=== PATIENT | female | born 1955 | race Two or more races ===

== ENCOUNTER 2023-05-16 08:29 | Emergency (ER) | payer OTHER, MEDICAID ==
[~2023-05-16] VITALS: Ht 157.5 cm; Wt 90.4 kg
[2023-05-16 09:32] VITALS: BP 137/77; PULSE 69; RESP 20; TEMP 98.2; O2SAT 97
[2023-05-16 09:40] LABS: Urine Bacteria FEW /hpf (None Seen); Urine Blood 2+ /uL (Negative); Urine Clarity Clear (Clear); Urine Color Yellow (Yellow); Urine Hyaline Cast FEW /lpf (0 - 2); Urine Mucus FEW (None Seen); Urine Protein, UAD Negative (Negative); Urine Specific Gravity 1.018 (1.001-1.035); Urine Urobilinogen Normal (Negative); Urine WBC 1 /hpf (0 - 5); Urine pH 6.5 (5.0-8.0)
[2023-05-16 09:54] LABS: Basophils # (auto) 0.1 10 ^3/uL (0-0.2); Basophils % (auto) 1.1 % (0.0-2.0); Eosinophils # (auto) 0.3 10 ^3/uL (0-0.8); Eosinophils % (auto) 3.4 % (0.0-7.0); Hematocrit 41.4 % (36.0-46.0); Hemoglobin 13.5 g/dL (12.2-16.2); Lymphocytes # (auto) 2.3 10 ^3/uL (0.4-5.4); Lymphocytes % (auto) 30.2 % (10.0-50.0); Mean Corpuscular Hgb Conc. 32.7 g/dL (32.0-36.0); Mean Corpuscular Volume 91.6 fL (80.0-100.0); Monocytes # (auto) 0.4 10 ^3/uL (0-1.3); Monocytes % (auto) 5.3 % (0.0-12.0); Neutrophils # (auto) 4.6 10 ^3/uL (1.6-8.6); Red Blood Cells 4.51 10^6/uL (4.0-5.20); Red Cell Distribution Width 14.3 % (11.8-14.3); White Blood Cell 7.6 10^3/uL (4.4-10.8)
[2023-05-16 10:05] LABS: Chloride 110 mmol/L (98-107); Potassium 3.9 mmol/L (3.5-5.1); Sodium 140 mmol/L (136-145)
[2023-05-16 10:06] LABS: Anion Gap 8 (5-15); Carbon Dioxide 22 mmol/L (20-30)
[2023-05-16 10:07] LABS: Calcium 9.4 mg/dL (8.5-10.1)
[2023-05-16 10:11] LABS: BUN/Creatinine Ratio 10.7 (10.0-20.0); Blood Urea Nitrogen 8 mg/dL (9-23); Glucose 113 mg/dL (74-106)
[2023-05-16] MEDS ORDERED: PROM1SOL4 PO (11:18)
[2023-05-16] MEDS ORDERED: AZIT500T66 PO (11:18)
[2023-05-16] MEDS ORDERED: IBUP-1456 PO (11:18)
== END 2023-05-16 11:24 | disposition home or self-care (01) ==
LOC: ER 08:29
DX: N93.9 Abnormal uterine and vaginal bleeding, unspecified (principal); M79.671 Pain in right foot; J20.9 Acute bronchitis, unspecified; Z90.710 Acquired absence of both cervix and uterus
CPT/HCPCS: 36415; 71045; 73630; 76856; 80048; 81001; 85025

== ENCOUNTER 2023-10-07 17:57 | Emergency (ER) | payer OTHER, MEDICAID ==
[~2023-10-07] VITALS: Ht 157.5 cm; Wt 94.0 kg
[~2023-10-07 17:57] MED LIST: AZIT500T66 PO; IBUP-1456 PO; PROM1SOL4 PO
[2023-10-07 18:39] VITALS: BP 107/67; PULSE 83; RESP 16; O2SAT 96
[2023-10-07] MEDS ORDERED: ACETAMINOPHEN 325 MG TAB PO ONE (19:30)
== END 2023-10-07 21:10 | disposition left against medical advice (07) ==
LOC: ER 17:57
DX: Z48.00 Encounter for change or removal of nonsurgical wound dressing (principal); Z53.21 Procedure and treatment not carried out due to patient leaving prior to being seen by health care provider

== ENCOUNTER 2023-12-21 05:49 | Inpatient (IN) | payer OTHER, MEDICAID ==
[~2023-12-21] VITALS: Ht 157.5 cm; Wt 95.0 kg
[2023-12-21] MEDS: HYDROcodone-ACET 10/325MG TAB PO ONE (07:33)
[2023-12-21 08:20] LABS: Basophils # (auto) 0.1 10 ^3/uL (0-0.2); Basophils % (auto) 0.6 % (0.0-2.0); Eosinophils # (auto) 0.2 10 ^3/uL (0-0.8); Eosinophils % (auto) 1.8 % (0.0-7.0); Hematocrit 41.7 % (36.0-46.0); Mean Corpuscular Hemoglobin 30.7 pg (28.0-32.0); Mean Corpuscular Hgb Conc. 33.6 g/dL (32.0-36.0); Mean Corpuscular Volume 91.4 fL (80.0-100.0); Monocytes # (auto) 0.4 10 ^3/uL (0-1.3); Monocytes % (auto) 3.2 % (0.0-12.0); Neutrophils # (auto) 8.6 10 ^3/uL (1.6-8.6); Neutrophils % (auto) 76.4 % (37.0-80.0); Red Blood Cells 4.56 10^6/uL (4.0-5.20); Red Cell Distribution Width 14.4 % (11.8-14.3); White Blood Cell 11.2 10^3/uL (4.4-10.8)
[2023-12-21 08:41] LABS: Chloride 109 mmol/L (98-107); Potassium 4.4 mmol/L (3.5-5.1); Sodium 138 mmol/L (136-145)
[2023-12-21 08:42] LABS: Anion Gap 8 (5-15); Calcium 9.5 mg/dL (8.7-10.4); Carbon Dioxide 21 mmol/L (20-30)
[2023-12-21 08:47] LABS: BUN/Creatinine Ratio 13.5 (10.0-20.0); Blood Urea Nitrogen 12 mg/dL (9-23); Glucose 142 mg/dL (74-106)
[2023-12-21 09:30] VITALS: PULSE 74; RESP 12; O2SAT 97
[2023-12-21 10:57] VITALS: RESP 12; O2SAT 94
[2023-12-21] MEDS ORDERED: HYDROcodone-ACET 5/325MG TAB PO PRN (12:45)
[2023-12-21] MEDS ORDERED: ACETAMINOPHEN 325 MG TAB PO PRN (12:45)
[2023-12-21] MEDS: SODIUM CHLORIDE 0.9% 1,000 ML IV SCH (13:14)
[2023-12-21] MEDS: KETOROLAC TROMETH 30 MG/ML 1ML VIAL IV ONE (13:15)
[2023-12-21] MEDS: IBUPROFEN 800 MG TAB PO SCH (13:16)
[2023-12-21 13:19] LABS: LDL Cholesterol 155 mg/dL (< 100); Triglycerides 84 mg/dL (< 150)
[2023-12-21 13:21] LABS: Cholesterol 210 mg/dL (< 200); HDL Cholesterol 46 mg/dL (40-59)
[2023-12-21 13:38] LABS: Erythrocyte Sedimentation Rate 34 mm/hr (0-20)
[2023-12-21] MEDS ORDERED: ATOR40TA52 PO (18:21)
[2023-12-21] MEDS ORDERED: TRAM50TA2 PO (18:21)
[2023-12-21] MEDS ORDERED: CYCL-837 PO (18:23)
[2023-12-21] MEDS ORDERED: METH-1182 PO (18:23)
[2023-12-21 19:30] VITALS: PULSE 82; RESP 17; O2SAT 97
[2023-12-21] MEDS: MORPHINE SULFATE INJ 2 MG/ml SYRG IV PRN (20:47)
[2023-12-21 21:00] VITALS: BP 122/52; PULSE 68; RESP 17; TEMP 98; O2SAT 93
[2023-12-22] VITALS (7 sets, daily range): BP systolic 127–146; BP diastolic 52–78; PULSE 62–87; RESP 14–19; TEMP 97.5–98.5; O2SAT 94–97
[2023-12-22 05:33] LABS: Basophils # (auto) 0.1 10 ^3/uL (0-0.2); Basophils % (auto) 0.7 % (0.0-2.0); Eosinophils # (auto) 0.5 10 ^3/uL (0-0.8); Eosinophils % (auto) 6.5 % (0.0-7.0); Hematocrit 38.7 % (36.0-46.0); Hemoglobin 13.4 g/dL (12.2-16.2); Lymphocytes # (auto) 3.5 10 ^3/uL (0.4-5.4); Lymphocytes % (auto) 41.4 % (10.0-50.0); Mean Corpuscular Hemoglobin 31.5 pg (28.0-32.0); Mean Corpuscular Hgb Conc. 34.6 g/dL (32.0-36.0); Mean Corpuscular Volume 91.2 fL (80.0-100.0); Monocytes # (auto) 0.6 10 ^3/uL (0-1.3); Neutrophils # (auto) 3.7 10 ^3/uL (1.6-8.6); Neutrophils % (auto) 44.4 % (37.0-80.0); Red Blood Cells 4.24 10^6/uL (4.0-5.20); Red Cell Distribution Width 14.2 % (11.8-14.3); White Blood Cell 8.4 10^3/uL (4.4-10.8)
[2023-12-22 05:52] LABS: Alanine Aminotransferase 15 U/L (7-40); Albumin 3.7 g/dL (3.2-4.8); Alkaline Phosphatase 85 U/L (46-116); Anion Gap 7 (5-15); Aspartate Aminotransferase 12 U/L (13-40); Blood Urea Nitrogen 16 mg/dL (9-23); Calcium 8.9 mg/dL (8.7-10.4); Carbon Dioxide 22 mmol/L (20-30); Chloride 112 mmol/L (98-107); Glucose 116 mg/dL (74-106); Potassium 4.1 mmol/L (3.5-5.1); Sodium 141 mmol/L (136-145)
[2023-12-22 05:53] LABS: Bilirubin, Total 0.3 mg/dL (0.2-1.0); Total Protein 6.3 g/dL (5.7-8.2)
[2023-12-22] MEDS: ENOXAPARIN SOD 40 MG/0.4 ML SYRINGE SC SCH (09:59)
[2023-12-22] MEDS: DOCUSATE SOD 100 MG CAP PO PRN (15:01)
[2023-12-23 01:24] VITALS: BP 119/61; PULSE 68; RESP 17; TEMP 98; O2SAT 94
[2023-12-23 05:00] VITALS: BP 128/65; PULSE 66; RESP 17; TEMP 97.6; O2SAT 92
[2023-12-23 09:00] VITALS: BP 120/91; PULSE 66; RESP 20; TEMP 97.8; O2SAT 96
[2023-12-23 13:00] VITALS: BP 155/78; PULSE 67; RESP 20; TEMP 98; O2SAT 97
[2023-12-23] MEDS ORDERED: HYDR-4069 PO (14:55)
== END 2023-12-23 16:15 | disposition home or self-care (01) | DRG 558 ==
LOC: ER 05:49 → OVERFLOW 12:36 → WEST WING 15:50
PROVIDERS: ADMIT Nurse Practitioner Family; ATTEND Family Medicine
DX: M75.111 Incomplete rotator cuff tear or rupture of right shoulder, not specified as traumatic (principal); E66.01 Morbid (severe) obesity due to excess calories; E78.00 Pure hypercholesterolemia, unspecified; M75.51 Bursitis of right shoulder; G89.29 Other chronic pain; Z82.49 Family history of ischemic heart disease and other diseases of the circulatory system; Z83.3 Family history of diabetes mellitus; Z82.3 Family history of stroke; Z90.710 Acquired absence of both cervix and uterus; Z68.38 Body mass index [BMI] 38.0-38.9, adult
CPT/HCPCS: 36415; 73030; 73221; 80048; 80053; 80061; 84443; 85025; 85652; 86141; 96374; G0378; J1885

== ENCOUNTER 2025-01-29 12:53 | Emergency (ER) | payer OTHER, MEDICAID ==
[~2025-01-29] VITALS: Ht 157.5 cm; Wt 92.2 kg
[~2025-01-29 12:53] MED LIST changes: +ATOR40TA52 PO; -AZIT500T66 PO; +CYCL-837 PO; +HYDR-4069 PO; -IBUP-1456 PO; +METH-1182 PO; -PROM1SOL4 PO; +TRAM50TA2 PO
--- NOTE | 2025-01-29 13:47 | ED.PDOC ---
History of Present Illness HPI Comments A 69-YEAR-OLD FEMALE, WITH A PMHX OF SCIATICA AND CHRONIC LOW BACK PAIN, PRESENTS TO THE ED VIA WHEELCHAIR WITH A CHIEF COMPLAINT OF RIGHT SHOULDER PAIN WITH ASSOCIATED LEFT LOWER BACK PAIN. PATIENT STATES SHE HAS HAD RIGHT SHOULDER PAIN FOR 9 DAYS, WITH BACK PAIN OF YESTERDAY. PATIENT REPORTS TAKING TRA MADOL AT HOME FOR SCIATICA, BUT REPORTS NO RELIEF. PATIENT CAME TO THE ED TODAY FOR FURTHER EVALUATION AND STRONGER MEDICATIONS. PATIENT HAS NO FURTHER COMPLAINTS AT THIS TIME FURTHER ASSOCIATED SYMPTOMS OF FEVER, CHILLS, NAUSEA, VOMITING, GENERAL WEAKNESS, OR DIZZINESS. PATIENT IS ALERT, ORIENTED X 4, AND HAS STEADY GAIT. Chief Complaint: Back Pain Time Seen by MD: 13:35 Primary Care Provider: DEVIN Reviewed Notes: Nurses Notes, Medications, Allergies Allergies: Coded Allergies: Codeine (Verified Allergy, Severe, 10/07/23) Penicillins (Verified Allergy, Mild, SNEEZING, MIGRAINES, 12/21/23) Home Meds Active Scripts Prednisone (Prednisone) 20 Mg Tab, 40 MG PO DAILY, #20 TAB Prov:LUIS SMITH 01/29/25 Methocarbamol (Methocarbamol) 750 Mg Tab, 750 MG PO BID, #20 TAB Prov:LUIS SMITH 01/29/25 Hydrocodone-Acetaminophen (Hydrocodone/Acetaminophen 7.5-325 mg) 1 Tab Tab, 1 TAB PO QID PRN, #30 TAB Prov:EL PHILLIPS MD 12/23/23 Reported Medications Methocarbamol (Methocarbamol) 750 Mg Tab, 750 MG PO, TAB 12/21/23 Cyclobenzaprine Hcl (Cyclobenzaprine Hcl) 5 Mg Tab, 1 TAB PO TID, #30 TAB 12/21/23 Tramadol Hcl (Tramadol Hcl) 50 Mg Tab, 50 MG PO PRN, TAB 12/21/23 Atorvastatin Calcium (ATORVASTATIN CALCIUM) 40 Mg Tab, 1 TAB PO QPM, #90 TAB 3 Refills 12/21/23 Information Source: Patient Mode of Arrival: Ambulatory Severity: Moderate Timing: Days Duration: Since onset, Days Prehospital treatment: None Medication Refill: For: Pain (CHRONIC LOW BACK PAIN ) Location: R SHOULDER AND LEFT LOWER BACK Associated signs and symptoms LEFT LOWER BACK PAIN, RIGHT SHOULDER PAIN Past Medical History PAST MEDICAL HISTORY: Arthritis, High Lipids Past Medical History (Other): CHRONIC LOW BACK PAIN Surgical History: Hysterectomy POT OPERATOR History: No Pertinent POT OPERATOR History Family History Family History: Reviewed,noncontributory to illness Social History Smoker: Non-Smoker Alcohol: Denies ETOH Use Drugs: Denies Drug Use Lives In: Home Constitutional: reports: others (ANXIOUS ); denies: chills, diaphoresis, fatigue, fever, malaise, sweats, weakness EENTM: denies: blurred vision, double vision, ear bleeding, ear discharge, ear drainage, ear pain, ear ringing, eye pain, eye redness, hearing loss, mouth pain, mouth swelling, nasal discharge, nose bleeding, nose congestion, nose pain, photophobia, tearing, throat pain, throat swelling, voice changes, others Respiratory: denies: cough, hemoptysis, orthopnea, SOB at rest, shortness of breath, SOB with excertion, stridor, wheezing, others Cardiovascular: denies: chest pain, dizzy spells, diaphoresis, Dyspnea on exertion, edema, irregular heart beat, left arm pain, lightheadedness, p alpitations, PND, syncope, others Gastrointestinal: denies: abdomen distended, abdominal pain, blood streaked bowels, constipated, diarrhea, dysphagia, difficulty swallowing, hematemesis, melena, nausea, poor appetite, poor fluid intake, rectal bleeding, rectal pain, vomiting, others Genitourinary: denies: abnormal vagina bleeding, burning, dyspareunia, dysuria, flank pain, frequency, hematuria, incontinence, pain, , vagina discharge, urgency, others Neurological: denies: dizziness, fainting, headache, left sided numbness, left sided weakness, numbness, paresthesia, pre-existing deficit, right sided numbness, right sided weakness, seizure, speech problems, tingling, tremors, weakness, others Musculoskeletal: reports: back pain, joint pain, muscle pain, others (R SHOULDER PAIN ); denies: gout, joint swelling, muscle stiffness, neck pain Integumetry: denies: bruises, change in color, change in hair/nails, dryness, laceration, lesions, lumps, rash, wounds, others Allergic/Immunocompromised: denies: Difficulty Healing, Frequent Infections, Hives, Itching, others Hematologic/Lymphatic: denies: anemia, blood clots, easy bleeding, easy bruising, swollen glands, others Endocrine: denies: excessive hunger, excessive sweating, excessive thirst, excessive urination, flushing, intolerance to cold, intolerance to heat, unexplained weight gain, unexplained weight loss, others Psychiatric: denies: anxiety, bipolar disorder, depression, hopeless, panic disorder, schizophrenia, sleepless, suicidal, others All Other Systems: Reviewed and Negative Physical Exam General Appearance: No Apparent Distress, Obese HEENT: Normal ENT Inspection, PERRL/EOMI, Pharynx Normal, TMs Normal Neck: Full Range of Motion, Non-Tender, Normal, Normal Inspection Respiratory: Chest Non-Tender, Lungs Clear, No Accessory Muscle Use, No Respiratory Distress, Normal Breath Sounds Cardiovascular: No Edema, No JVD, No Murmur, No Gallop, Normal Peripheral Pulses, Regular Rate/Rhythm Breast Exam: Deferred Gastrointestinal: No Organomegaly, Non Tender, No Pulsatile Mass, Normal Bowel Sounds, Soft Genitalia: Deferred Pelvic: Deferred Rectal: Deferred Extremities: Decreased range of motion (SLIGHTLY. ), No calf tenderness, Normal capillary refill, Normal inspection, No pedal edema, Tender (RIGHT SHOULDER, NO BONY TENDERNESS, SWELLING AND DEFORMITY. ) Musculoskeletal : Location: Bilateral Extremity Location: Back Apperance: Tenderness: Moderate (TENDERNESS AND MUSCLE SPASM ON LOWER BACK, NO BONY TENDERNESS AND SWELLING AND DEFORMITY. ) Neurologic: Alert, de alcholizer II-XII nml as Tested, No Motor Deficits, Normal Affect, Normal Mood, No Sensory Deficits Cerebellar Function: Normal Reflexes: Normal Skin: Dry, Normal Color, Warm Peripheral Pulses: 2+ carotid (R), 2+ carotid (L), 2+ dorsalis pedis (R), 2+ dorsalis pedis (L) Lymphatic: No Adenopathy Was a procedure done? Was a procedure done?: No Differential Dx Considerations may include: CHRONIC LOWER BACK PAIN EXACERBATION, PAIN MANAGEMENT, TENDONITIS OF RIGHT SHOULDER X-Ray, Labs, Meds, VS Vital Signs Date Time Temp Pulse Resp B/P (MAP) Pulse Ox O2 Delivery O2 Flow Rate FiO2 01/29/25 14:08 66 16 122/61 01/29/25 12:57 98.2 66 18 136/81 96 98.2 Current Medications Medications (Trade) Dose Ordered Sig/Rox Route Start Time Stop Time Status Last Admin Morphine Sulfate 8 mg ONCE ONCE IM 01/29/25 13:45 01/29/25 13:46 DC 01/29/25 14:08 Ondansetron HCl (Zofran Po) 4 mg ONCE ONCE PO 01/29/25 13:45 01/29/25 13:46 DC 01/29/25 14:[address] [address] Ph: [phone] DIAGNOSTIC IMAGING Diagnostic Imaging Report : [id number] Signed PATIENT: BYRON RAYA MACCT: [id number] UNIT: [id number] : 1955 LOC: ER ROOM / BED: / AGE / SEX: 69 / F ADM STATUS: REG ER SERVICE 37 ORDERING PHYSICIAN: LUIS SMITH PROCEDURE(s): RSHD2 - R SHOULDER 2+ VIEW XRAY REASON: PAIN, NO INJURY ORDER NUMBER(s): [id number], ACCESSION NUMBER(s): [id number] CLINICAL INDICATION: PAIN, NO INJURY TECHNIQUE: 3 radiographic views of the right shoulder were obtained. Comparison: MRI RT SHOULDER WITHOUT on DOS: 12/22/23, XY R SHOULDER 2+ VIEW XRAY on DOS: 12/21/23 FINDINGS/IMPRESSION: Arthritic changes are noted of the acromioclavicular joint on the right. There are no fractures or dislocations [address] [address] Ph: [phone] DIAGNOSTIC IMAGING Diagnostic Imaging Report : [id number] Signed PATIENT: BYRON RAYA MACCT: [id number] UNIT: [id number] : 1955 LOC: ER ROOM / BED: / AGE / SEX: 69 / F ADM STATUS: REG ER SERVICE 37 ORDERING PHYSICIAN: LUIS SMITH PROCEDURE(s): LUMB2 - LUMBAR SPINE 3 VIEW REASON: LOW BACK PAIN TO LEFT THIGH ORDER NUMBER(s): [id number], ACCESSION NUMBER(s): [id number] XY LUMBAR SPINE 3 VIEW, HISTORY: LOW BACK PAIN TO LEFT THIGH COMPARISON: None TECHNICAL DATA: Frontal and lateral views were obtained of the lumbar spine . FINDINGS: There are 5 lumbar type vertebral bodies. Lumbar curvature is within normal limits. There is no spondylolisthesis. Vertebral body heights are maintained. Disk heights are narrow and degenerative. The facet joints appear degenerative. The sacroiliac joints are symmetric. Paraspinal soft tissues are within normal limits. IMPRESSION: No acute fracture or dislocation of the lumbar spine. X-Ray, Labs, Meds, VS Comment EXTERNAL MEDICAL RECORDS REVIEWED: [NONE] INDEPENDENT HISTORIANS: [NONE] SOCIAL DETERMINANTS OF HEALTH: [NONE] LABS ORDERED: NONE REVIEWED AND INTERPRETED RESULTS: NONE IMAGING ORDERED: R SHOULDER XRAY, LUMBAR SPINE XRAY. L-SPINE: DDD OF LOW BACK, NO FX AND DISLOCATION, READ BY ME, PENDING RADIOLOGIST READING. TREATMENTS ORDERED: MORPHINE IM 8MG, ZOFRAN 4MG WERE GIVEN WITHOUT COMPLICATIONS PROCEDURES PERFORMED: NONE CRITICAL CARE TIME: NONE I HAVE DISCUSSED THE PATIENT WITH THE ATTENDING PHYSICIAN, DR. PENG, AND HE AGREES WITH THE PATIENT'S PLAN OF CARE AND DISPOSITION. BASED ON HISTORY OF PRESENT ILLNESS, AND PHYSICAL EXAM, PATIENT WILL BE DISCHARGED HOME. DISCUSSED PLAN FOR DISCHARGE HOME WITH RX [PREDNISONE AND ROBAXIN]. MEDICATION WARNINGS GIVEN. SHARED DECISION MAKING: DISCUSSED WITH PATIENT THAT THEIR WORKUP WAS NORMAL. PATIENT INSTRUCTED TO FOLLOW UP WITH PRIMARY CARE PROVIDER IN 1-2 DAYS FOR RE- EVALUATION OF SYMPTOMS. PATIENT VERBALIZES UNDERSTANDING TO RETURN TO ED FOR NEW OR WORSENING SYMPTOMS OR IF FOLLOW UP WITH PCP CANNOT BE OBTAINED. PATIENT FEELS COMFORTABLE GOING HOME AT THIS TIME. ALL QUESTIONS ADDRESSED AT TIME OF DISCHARGE. Images Reviewed?: Images reviewed and evaluated by me Time of 1ST Reevaluation: 14:40 Reevaluation 1ST: Improved Patient Education/Counseling: Diagnosis, Treatment, Need For Follow Up Family Education/Counseling: Diagnosis, Treatment, Need For Follow Up Medical Screening: No EMC Exist At This Time SEPSIS Sepsis Screen Date sepsis recognized/suspect: Jan 29, 2025 Time Sepsis recognized/suspect: 1259 Recent Procedure: No On Antibiotic Therapy: No Respiratory Rate >20: No Heart Rate >90: No Temp<36 C (96.8 F) or >38.3 C: No SBP <90 or MAP <65 mmHG: No New Acute Mental Status Change: No Is the patient on CPAP, BIPAP,: No Physician Orders R Shoulder 2+ View Xray (01/29/25 13:38) Lumbar Spine 3 View (01/29/25 13:38) Vital Signs Date Time Temp Pulse Resp B/P (MAP) Pulse Ox O2 Delivery O2 Flow Rate FiO2 01/29/25 14:08 66 16 122/61 01/29/25 12:57 98.2 66 18 136/81 96 98.2 Medications Medications Dose Ordered Sig/Rox Route Start Time Stop Time Status Last Admin Dose Admin Morphine Sulfate 8 mg ONCE ONCE IM 01/29/25 13:45 01/29/25 13:46 DC 01/29/25 14:08 Ondansetron HCl 4 mg ONCE ONCE PO 01/29/25 13:45 01/29/25 13:46 DC 01/29/25 14:08 Departure 1 Departure Time of Disposition: 14:40 Impression: Primary Impression: DDD (degenerative disc disease), lumbosacral Qualified Codes: M51.372 - Other intervertebral disc degeneration, lumbosacral region with discogenic back pain and lower extremity pain Additional Impressions: Lumbar radiculopathy Tendonitis of shoulder, right Pain management Disposition: HOME / SELF CARE / HOMELESS Condition: Stable Additional Instructions: FOLLOW-UP WITH PCP IN 1 TO 2 DAYS. TAKE MEDICATIONS PRESCRIBED. RETURN TO ED FOR ANY NEW OR WORSENING SYMPTOMS. e-Prescriptions Prednisone (Prednisone) 20 Mg Tab 40 MG PO DAILY, #20 TAB Prov: LUIS SMITH 01/29/25 Methocarbamol (Methocarbamol) 750 Mg Tab 750 MG PO BID, #20 TAB Prov: LUIS SMITH 01/29/25 Discharged With: Self, Spouse Critical Care Note Critical Care Time?: No Stability Stability form required: No Heart Score Heart Score: Heart Score Response (Comments) Value History N/A 0 EKG N/A 0 Age N/A 0 Risk Factors N/A 0 Troponin N/A 0 Total 0 I personally scribed for LUIS SMITH ([email or web address]) on 01/29/25 at 13:47. Electronically submitted by Carmen Hilton ([employer]). I personally scribed for LUIS SMITH ([email or web address]) on 01/29/25 at 13:49. Electronically submitted by Carmen Hilton ([employer]YLER). I personally scribed for LUIS SMITH ([email or web address]) on 01/29/25 at 14:28. Electronically submitted by Cramen Hilton (TAYLER). I personally scribed for LUIS SMITH ([email or web address]) on 01/29/25 at 14:28. Electronically submitted by Carmen Hilton (TAYLER). LUIS SMITH Jan 29, 2025 13:47
[2025-01-29] MEDS: MORPHINE SULFATE INJ 2 MG/ml SYRG IM ONE (14:08)
[2025-01-29] MEDS: ONDANSETRON ODT 4 MG TAB PO ONE (14:08)
--- NOTE | 2025-01-29 14:20 | DVH ---
CLINICAL INDICATION: PAIN, NO INJURY TECHNIQUE: 3 radiographic views of the right shoulder were obtained. Comparison: MRI RT SHOULDER WITHOUT on DOS: 12/22/23, XY R SHOULDER 2+ VIEW XRAY on DOS: 12/21/23 FINDINGS/IMPRESSION: Arthritic changes are noted of the acromioclavicular joint on the right. There are no fractures or dislocations
--- NOTE | 2025-01-29 14:24 | DVH ---
XY LUMBAR SPINE 3 VIEW, HISTORY: LOW BACK PAIN TO LEFT THIGH COMPARISON: None TECHNICAL DATA: Frontal and lateral views were obtained of the lumbar spine . FINDINGS: There are 5 lumbar type vertebral bodies. Lumbar curvature is within normal limits. There is no spond ylolisthesis. Vertebral body heights are maintained. Disk heights are narrow and degenerative. The fa cet joints appear degenerative. The sacroiliac joints are symmetric. Paraspinal soft tissues are with in normal limits. IMPRESSION: No acute fracture or dislocation of the lumbar spine.
[2025-01-29] MEDS ORDERED: METH-1182 PO (14:29)
[2025-01-29] MEDS ORDERED: PRED20TA2 PO (14:29)
[2025-01-29 14:39] VITALS: BP 127/52; PULSE 60; RESP 16; TEMP 98.2; O2SAT 95
== END 2025-01-29 14:38 | disposition home or self-care (01) ==
LOC: ER 12:53
DX: M51.17 Intervertebral disc disorders with radiculopathy, lumbosacral region (principal); M77.8 Other enthesopathies, not elsewhere classified; M19.90 Unspecified osteoarthritis, unspecified site; E78.5 Hyperlipidemia, unspecified; Z79.899 Other long term (current) drug therapy; Z88.0 Allergy status to penicillin; Z90.710 Acquired absence of both cervix and uterus
CPT/HCPCS: 72100; 73030; 96372; 99284; J2270; Q0162

== ENCOUNTER 2025-04-22 14:45 | Emergency (ER) | payer OTHER, MEDICAID ==
[~2025-04-22] VITALS: Ht 157.5 cm; Wt 88.5 kg
[~2025-04-22 14:45] MED LIST changes: +PRED20TA2 PO
--- NOTE | 2025-04-22 15:49 | DVH ---
INDICATION: LOW BACK PAIN TECHNIQUE: Frontal and lateral views of the lumbar spine were obtained. COMPARISON: XY LUMBAR SPINE 3 VIEW on DOS: 01/29/25 FINDINGS: Multilevel degenerative changes most severe moderateat l4-l5 thru l5- s1 with moderate spinal canal stenosis. There are no fractures or subluxations. Vertebral body heights and disc spaces are well maintained. Paravertebral soft tissues are unremarkable. IMPRESSION: 1. Of the visualized spine, there is no evidence for fracture or subluxation.
--- NOTE | 2025-04-22 16:16 | ED.PDOC ---
Back pain HPI HPI Comments A 70 YEAR OLD FEMALE PRESENTS TO THE ED WITH COMPLAINT OF LOWER BACK PAIN THAT RADIATES DOWN LEFT LEG. PATIENT STATES HE HAS A HISTORY OF CHRONIC LOWER BACK PAIN AND HAS BEEN EXPERIENCING LOWER BACK PAIN THAT RADIATES DOWN HER LEFT LEG FOR THE PAST 2 DAYS. PATIENT NOTES SHE HAS HAD THIS PAIN IN THE PAST. PATIENT DENIES SADDLE ANESTHESIA, URINARY INCONTINENCE, BOWEL INCONTINENCE, FEVER, CHILLS, SHORTNESS OF BREATH, CHEST PAIN, ABDOMINAL PAIN, NAUSEA, VOMITING, HEADACHE, OR OTHER COMPLAINTS. NO OTHER SYMPTOMS OR MODIFYING FACTORS AT THIS TIME. PATIENT IS ALERT, ORIENTED X 4, AND HAS STEADY GAIT. Chief Complaint: Back Pain Time Seen by MD: 14:55 Primary Care Provider: DEVIN Reviewed Notes: Nurses Notes, Medications, Allergies Allergies: Coded Allergies: Codeine (Verified Allergy, Severe, 10/07/23) Penicillins (Verified Allergy, Mild, SNEEZING, MIGRAINES, 12/21/23) Home Meds Active Scripts Prednisone (Prednisone) 20 Mg Tab, 40 MG PO DAILY, #20 TAB Prov:LUIS SMITH 01/29/25 Methocarbamol (Methocarbamol) 750 Mg Tab, 750 MG PO BID, #20 TAB Prov:LUIS SMITH 01/29/25 Hydrocodone-Acetaminophen (Hydrocodone/Acetaminophen 7.5-325 mg) 1 Tab Tab, 1 TAB PO QID PRN, #30 TAB Prov:EL PHILLIPS MD 12/23/23 Reported Medications Methocarbamol (Methocarbamol) 750 Mg Tab, 750 MG PO, TAB 12/21/23 Cyclobenzaprine Hcl (Cyclobenzaprine Hcl) 5 Mg Tab, 1 TAB PO TID, #30 TAB 12/21/23 Tramadol Hcl (Tramadol Hcl) 50 Mg Tab, 50 MG PO PRN, TAB 12/21/23 Atorvastatin Calcium (ATORVASTATIN CALCIUM) 40 Mg Tab, 1 TAB PO QPM, #90 TAB 3 Refills 12/21/23 Information Source: Patient Mode of Arrival: Ambulatory Timing: Days Duration: Since onset, Days Location of Back pain: (B) Lumbar Radiates to: Anterior: (L) Buttocks, (L) Calf, (L) Thigh Radiates to: Posterior: (L) Buttocks, (L) Calf, (L) Thigh Radiates to: Medial: (L) Buttocks, (L) Calf, (L) Thigh Radiates to: Lateral: (L) Buttocks, (L) Calf, (L) Thigh Severity: Moderate Prehospital treatment: None Quality: Aching, Cramping Onset: Spontaneous History of: Chronic Back Pain Modifying Factors: Movement, Twisting Associated signs and symptoms: None Past Medical History PAST MEDICAL HISTORY: Arthritis, High Lipids Past Medical History (Other): CHRONIC LOWER BACK PAIN Surgical History: Hysterectomy PUPPY WALKER History: No Pertinent PUPPY WALKER History Family History Family History: Reviewed,noncontributory to illness Social History Smoker: Non-Smoker Alcohol: Denies ETOH Use Drugs: Denies Drug Use Lives In: Home Constitutional: denies: chills, diaphoresis, fatigue, fever, malaise, sweats, weakness, others EENTM: denies: blurred vision, double vision, ear bleeding, ear discharge, ear drainage, ear pain, ear ringing, eye pain, eye redness, hearing loss, mouth pain, mouth swelling, nasal discharge, nose bleeding, nose congestion, nose pain, photophobia, tearing, throat pain, throat swelling, voice changes, others Respiratory: denies: cough, hemoptysis, orthopnea, SOB at rest, shortness of breath, SOB with excertion, stridor, wheezing, others Cardiovascular: denies: chest pain, dizzy spells, diaphoresis, Dyspnea on exertion, edema, irregular heart beat, left arm pain, lightheadedness, palpitations, PND, syncope, others Gastrointestinal: denies: abdomen distended, abdominal pain, blood streaked bowels, constipated, diarrhea, dysphagia, difficulty swallowing, hematemesis, melena, nausea, poor appetite, poor fluid intake, rectal bleeding, rectal pain, vomiting, others Genitourinary: denies: abnormal vagina bleeding, burning, dyspareunia, dysuria, flank pain, frequency, hematuria, incontinence, pain, , vagina discharge, urgency, others Neurological: denies: dizziness, fainting, headache, left sided numbness, left sided weakness, numbness, paresthesia, pre-existing deficit, right sided numbness, right sided weakness, seizure, speech problems, tingling, tremors, weakness, others Musculoskeletal: reports: back pain (LOWER BACK PAIN THAT RADIATES DOWN LEFT LEG), muscle pain; denies: gout, joint pain, joint swelling, muscle stiffness, neck pain, others Integumetry: denies: bruises, change in color, change in hair/nails, dryness, laceration, lesions, lumps, rash, wounds, others Allergic/Immunocompromised: denies: Difficulty Healing, Frequent Infections, Hives, Itching, others Hematologic/Lymphatic: denies: anemia, blood clots, easy bleeding, easy bruising, swollen glands, others Endocrine: denies: excessive hunger, excessive sweating, excessive thirst, excessive urination, flushing, intolerance to cold, intolerance to heat, unexplained weight gain, unexplained weight loss, others Psychiatric: denies: anxiety, bipolar disorder, depression, hopeless, panic disorder, schizophrenia, sleepless, suicidal, others All Other Systems: Reviewed and Negative Physical Exam General Appearance: No Apparent Distress, Normal HEENT: Normal ENT Inspection, PERRL/EOMI, Pharynx Normal, TMs Normal Neck: Full Range of Motion, Non-Tender, Normal, Normal Inspection Respiratory: Chest Non-Tender, Lungs Clear, No Accessory Muscle Use, No Respiratory Distress, Normal Breath Sounds Cardiovascular: No Edema, No JVD, No Murmur, No Gallop, Normal Peripheral Pulses, Regular Rate/Rhythm Breast Exam: Deferred Gastrointestinal: No Organomegaly, Non Tender, No Pulsatile Mass, Normal Bowel Sounds, Soft Genitalia: Deferred Pelvic: Deferred Rectal: Deferred Extremities: No calf tenderness, Normal capillary refill, Normal inspection, Normal range of motion, Non-tender, No pedal edema Musculoskeletal : Location: Bilateral Extremity Location: Back Apperance: Tenderness: Moderate (AND MUSCLE SPASM ON LOW BACK, NO BONY TENDERNESS, SWELLING AND DEFORMITY. ) Neurologic: Alert, retail account executive II-XII nml as Tested, No Motor Deficits, Normal Affect, Normal Mood, No Sensory Deficits Cerebellar Function: Normal Reflexes: Normal Skin: Dry, Normal Color, Warm Peripheral Pulses: 2+ carotid (R), 2+ carotid (L), 2+ dorsalis pedis (R), 2+ dorsalis pedis (L) Lymphatic: No Adenopathy Was a procedure done? Was a procedure done?: No Back Pain Differential Dx Differential Diagnosis: DJD, Musculoskeletal Pain, Strain Other Differential Diagnosis DDD, LUMBAR RADICULOPATHY X-Ray, Labs, Meds, VS Vital Signs Date Time Temp Pulse Resp B/P (MAP) Pulse Ox O2 Delivery O2 Flow Rate FiO2 11/13/25 14:47 97.9 72 18 114/76 96 97.9 Current Medications Medications (Trade) Dose Ordered Sig/Rox Route Start Time Stop Time Status Last Admin Acetaminophen/ Hydrocodone Bitart (Havana 10/325MG Tab) 1 tab ONCE ONCE PO 04/22/25 16:30 04/22/25 16:31 DC 04/22/25 16:34 INDICATION: LOW BACK PAIN TECHNIQUE: Frontal and lateral views of the lumbar spine were obtained. COMPARISON: XY LUMBAR SPINE 3 VIEW on DOS: 01/29/25 FINDINGS: Multilevel degenerative changes most severe moderateat l4-l5 thru l5- s1 with moderate spinal canal stenosis. There are no fractures or subluxations. Vertebral body heights and disc spaces are well maintained. Paravertebral soft tissues are unremarkable. IMPRESSION: 1. Of the visualized spine, there is no evidence for fracture or subluxation. ATED BY: JONNA AMBROSE MD DICTATED DATE/TIME: 04/22/25 154 SIGNED BY: JONNA AMBROSE MD SIGNED DATE/TIME: 04/22/25 154 CC: X-Ray, Labs, Meds, VS Comment EXTERNAL MEDICAL RECORDS REVIEWED: [NONE] INDEPENDENT HISTORIANS: [NONE] SOCIAL DETERMINANTS OF HEALTH: [NONE] LABS ORDERED: NONE REVIEWED AND INTERPRETED RESULTS: NONE IMAGING ORDERED: XR L-SPINE TREATMENTS ORDERED: NORCO 10/325 MG PO PROCEDURES PERFORMED: NONE CRITICAL CARE TIME: NONE I HAVE DISCUSSED THE PATIENT WITH THE ATTENDING PHYSICIAN DR. HARVEY AND HE AGREES WITH THE PATIENT'S PLAN OF CARE AND DISPOSITION. BASED ON HISTORY OF PRESENT ILLNESS, AND PHYSICAL EXAM, PATIENT WILL BE DISC HARGED HOME. DISCUSSED PLAN FOR DISCHARGE HOME WITH RX [BACLOFEN AND PREDNISONE]. MEDICATION WARNINGS GIVEN. SHARED DECISION MAKING: PATIENT INSTRUCTED TO FOLLOW UP WITH PRIMARY CARE PROVIDER IN 1-2 DAYS FOR RE-EVALUATION OF SYMPTOMS. PATIENT VERBALIZES UNDERSTANDING TO RETURN TO ED FOR NEW OR WORSENING SYMPTOMS OR IF FOLLOW UP WITH PCP CANNOT BE OBTAINED. PATIENT FEELS COMFORTABLE GOING HOME AT THIS TIME. ALL QUESTIONS ADDRESSED AT TIME OF DISCHARGE. Images Reviewed?: Images reviewed and evaluated by me Time of 1ST Reevaluation: 16:37 Reevaluation 1ST: Improved Patient Education/Counseling: Diagnosis, Treatment, Need For Follow Up Family Education/Counseling: Diagnosis, Treatment, Need For Follow Up Medical Screening: No EMC Exist At This Time SEPSIS Sepsis Screen Date sepsis recognized/suspect: Apr 22, 2025 Time Sepsis recognized/suspect: 1449 Recent Procedure: No On Antibiotic Therapy: No Respiratory Rate >20: No Heart Rate >90: No Temp<36 C (96.8 F) or >38.3 C: No SBP <90 or MAP <65 mmHG: No New Acute Mental Status Change: No Is the patient on CPAP, BIPAP,: No Physician Orders Lumbar Spine 3 View (04/22/25 15:02) Vital Signs Date Time Temp Pulse Resp B/P (MAP) Pulse Ox O2 Delivery O2 Flow Rate FiO2 04/22/25 14:47 97.9 72 18 114/76 96 97.9 Medications Medications Dose Ordered Sig/Rox Route Start Time Stop Time Status Last Admin Dose Admin Acetaminophen/ Hydrocodone Bitart 1 tab ONCE ONCE PO 04/22/25 16:30 04/22/25 16:31 DC 04/22/25 16:34 Departure 1 Departure Time of Disposition: 16:38 Impression: Primary Impression: DDD (degenerative disc disease), lumbar Qualified Codes: M51.362 - Other intervertebral disc degeneration, lumbar region with discogenic back pain and lower extremity pain Additional Impression: Lumbar radiculopathy Disposition: 01 HOME / SELF CARE / HOMELESS Condition: Stable Additional Instructions: FOLLOW-UP WITH PCP IN 1 TO 2 DAYS. TAKE MEDICATIONS PRESCRIBED. RETURN TO ED FOR ANY NEW OR WORSENING SYMPTOMS. e-Prescriptions Baclofen (Baclofen) 10 Mg Tab 10 MG PO BID, #30 TAB Prov: LUIS SMITH 04/22/25 Prednisone (Prednisone) 20 Mg Tab 20 MG PO DAILY, #20 TAB Prov: LUIS SMITH 04/22/25 Discharged With: Self, Relative Critical Care Note Critical Care Time?: No Stability Stability form required: No I personally scribed for LUIS SMITH ([email or web address]) on 04/22/25 at 16:15. Electronically submitted by Steven Jackson ([employer]). I personally scribed for LUIS SMITH ([email or web address]) on 04/22/25 at 16:22. Electronically submitted by Steven Jackson ([employer]). LUIS SMITH Apr 22, 2025 16:15
[2025-04-22] MEDS: HYDROcodone-ACET 10/325MG TAB PO ONE (16:34)
[2025-04-22] MEDS ORDERED: TRAM-626 PO (16:40)
[2025-04-22] MEDS ORDERED: BACL10TA PO (16:42)
[2025-04-22 16:47] VITALS: BP 118/61; PULSE 69; RESP 15; TEMP 97.9; O2SAT 95
== END 2025-04-22 16:48 | disposition home or self-care (01) ==
LOC: ER 14:45
DX: M51.16 Intervertebral disc disorders with radiculopathy, lumbar region (principal); M19.90 Unspecified osteoarthritis, unspecified site; E78.5 Hyperlipidemia, unspecified; Z79.899 Other long term (current) drug therapy; Z90.710 Acquired absence of both cervix and uterus; Z88.5 Allergy status to narcotic agent; Z88.0 Allergy status to penicillin; Z79.52 Long term (current) use of systemic steroids
CPT/HCPCS: 72100